=== PATIENT | female | born 2000 ===

== ENCOUNTER 2023-10-13 04:37 | Emergency (ER) | payer MEDICAID, OTHER ==
[~2023-10-13] VITALS: Ht 172.7 cm; Wt 104.0 kg
[~2023-10-13 04:37] MED LIST: ALBU8HFA PO; NO HOME MEDS; PRED50TA PO
[2023-10-13 04:40] VITALS: BP 120/76; PULSE 89; RESP 18; TEMP 98.1; O2SAT 99
== END 2023-10-13 05:47 | disposition left against medical advice (07) ==
LOC: ER 04:38
DX: R11.2 Nausea with vomiting, unspecified (principal); R19.7 Diarrhea, unspecified; Z53.21 Procedure and treatment not carried out due to patient leaving prior to being seen by health care provider